=== PATIENT | male | born 1955 | race Caucasian/White ===

== ENCOUNTER 2020-05-27 09:52 | Observation (INO) | payer BC, MEDICARE ==
[~2020-05-27] VITALS: Ht 172.7 cm; Wt 72.6 kg
[2020-05-27] MEDS ORDERED: ASPIRIN 81 MG TABLET CHEW ONE (10:29)
[2020-05-27] MEDS ORDERED: PLEASE ENTER HEIGHT MC SCH (10:30)
[2020-05-27] MEDS ORDERED: ASPIRIN 81 MG TABLET CHEW PO ONE (10:30)
[2020-05-27] MEDS ORDERED: SODIUM CHLORIDE FLUSH 10ML SYR IVF ONE (10:30)
[2020-05-27 10:48] LABS: BASOPHILS % (AUTO) 1 % (0-1); EOSINOPHILS % (AUTO) 1 % (1-7); LYMPHOCYTES % (AUTO) 27 % (22-44); MEAN CORPUSCULAR HEMOGLOBIN 32.3 pg (27.5-34.5); MEAN CORPUSCULAR HGB CONC 34.2 g/dL (33.2-36.2); MEAN PLATELET VOLUME 8.3 fL (7.4-10.4); MONOCYTES % (AUTO) 11 % (2-9); NEUTROPHILS % (AUTO) 61 % (42-75); PLATELET COUNT 229 x10^3/uL (130-400); RED BLOOD COUNT 4.56 x10^6/uL (4.38-5.82); RED CELL DISTRIBUTION WIDTH 12.8 % (9.4-14.8)
[2020-05-27 10:54] LABS: MD NO
[2020-05-27 10:58] LABS: ALANINE AMINOTRANSFERASE 28 U/L (12-78); ANION GAP 5 mmol/L (5-15); CHLORIDE 109 mmol/L (98-107)
[2020-05-27 11:03] LABS: ALKALINE PHOSPHATASE 59 U/L (45-117); BILIRUBIN,TOTAL 0.6 mg/dL (0.2-1.0); TOTAL PROTEIN 7.5 g/dL (6.4-8.2); TROPONIN I < 0.015 ng/mL (0.000-0.045)
[2020-05-27] MEDS ORDERED: SODIUM CHLORIDE FLUSH 10ML SYR IVF PRN (13:30)
[2020-05-27] MEDS ORDERED: ASPI325T17 PO (13:32)
[2020-05-27] MEDS ORDERED: ATOR10TA9 PO (13:32)
[2020-05-27] MEDS ORDERED: VALS1TAB25 PO (13:32)
[2020-05-27] MEDS ORDERED: ESZO3TAB28 PO (13:32)
[2020-05-27] MEDS ORDERED: METO50TA82 PO (13:32)
[2020-05-27] MEDS ORDERED: ACETAMINOPHEN 325 MG TABLET PO PRN (14:00)
[2020-05-27] MEDS ORDERED: ONDANSETRON ODT 4 MG PO PRN (14:00)
[2020-05-27] MEDS ORDERED: NITROGLYCERIN 0.4 MG BOTTLE (25 TABS) SL PRN (14:00)
[2020-05-27] MEDS ORDERED: ONDANSETRON 2MG/ML, 2ML IVPush PRN (14:00)
[2020-05-27 14:16] LABS: TROPONIN I < 0.015 ng/mL (0.000-0.045)
[2020-05-27] MEDS ORDERED: MAALOX/HYOSCYAMINE/LIDOCAINE 45 ML BTL PO ONE (14:30)
[2020-05-27 14:49] VITALS: BP 131/78
[2020-05-27] MEDS ORDERED: ENOXAPARIN 40 MG/0.4 ML SQ SCH (15:00)
[2020-05-27] MEDS: SODIUM CHLORIDE 0.9% 1,000 ML IV SCH (15:46)
[2020-05-27 19:49] LABS: TROPONIN I < 0.015 ng/mL (0.000-0.045)
[2020-05-27 20:19] VITALS: BP 129/85
[2020-05-27] MEDS ORDERED: ATORVASTATIN 80 MG TABLET PO SCH (21:00)
[2020-05-28 01:09] VITALS: BP 123/73
[2020-05-28] MEDS: SODIUM CHLORIDE 0.9% 1,000 ML IV SCH (05:35)
[2020-05-28 08:18] VITALS: BP 137/79
[2020-05-28] MEDS ORDERED: REGADENOSON 0.4 MG/5 ML SYRINGE ONE (08:39)
[2020-05-28] MEDS ORDERED: METOPROLOL TARTRATE 50 MG TAB PO SCH (09:00)
[2020-05-28] MEDS ORDERED: ASPIRIN 325 MG TABLET PO SCH (09:00)
[2020-05-28] MEDS ORDERED: NITR0.4T28 SL (10:11)
[2020-05-28] MEDS ORDERED: SODIUM CHLORIDE 0.9% 1,000 ML IV SCH (14:00)
== END 2020-05-28 15:15 | disposition home or self-care (01) ==
LOC: ED 11:02 → EDIP 13:02 → INTOOBSV 13:02 → 5SO 14:11 → DCLOUNGE 05-28 14:50
PROVIDERS: ADMIT Hospitalist; ATTEND Hospitalist
DX: I25.110 Atherosclerotic heart disease of native coronary artery with unstable angina pectoris (principal); R06.02 Shortness of breath; K21.9 Gastro-esophageal reflux disease without esophagitis; G47.00 Insomnia, unspecified; J45.909 Unspecified asthma, uncomplicated; E78.00 Pure hypercholesterolemia, unspecified; I10 Essential (primary) hypertension; I25.2 Old myocardial infarction; Z95.5 Presence of coronary angioplasty implant and graft; Z79.82 Long term (current) use of aspirin; Z79.899 Other long term (current) drug therapy
CPT/HCPCS: 36415; 71045; 78452; 80053; 83735; 83880; 84484; 85025; 85379; 93005; 93017; 96360; 96361; 96372; 99285; A9502; C9898; G0378; J1650; J2785; J7030